=== PATIENT | male | born 1970 | race Caucasian/White ===

== ENCOUNTER 2016-12-06 20:44 | Emergency (ER) | payer BC, OTHER ==
[~2016-12-06 20:44] MED LIST: LEVAQUIN500 MG PO; NAPROSYN500 MG PO; NO MEDICATIONS; PIROXICAM; TYLENOL W/CODEI1 TAB PO
[2016-12-06] MEDS ORDERED: IBUPROFEN600 M1 PO (21:27)
[2016-12-06] MEDS ORDERED: NORCO 5/3251 TAB PO (21:27)
== END 2016-12-06 21:40 ==
LOC: EDMED 20:44
DX: S43.101A Unspecified dislocation of right acromioclavicular joint, initial encounter (principal); W20.8XXA Other cause of strike by thrown, projected or falling object, initial encounter